=== PATIENT | male | born 1965 | race Two or more races ===

== ENCOUNTER 2017-04-26 07:07 | Day surgery (SDC) | payer BC ==
[2017-04-25 12:11] LABS: CALCIUM 10.4 mg/dL (8.6-10.2); CREATININE 1.4 mg/dL (0.7-1.2); POTASSIUM 4.4 mEQ/L (3.4-4.9)
[2017-04-25 12:13] LABS: BASOPHILS % (AUTO) 0.7 % (0.0-2.0); EOSINOPHILS % (AUTO) 0.7 % (0.0-3.0); LYMPHOCYTES % (AUTO) 20.4 % (20.0-45.0); MEAN CORPUSCULAR HEMOGLOBIN 33.6 PG (27.0-31.0); MEAN CORPUSCULAR HGB CONC 33.5 G/DL (32.0-36.0); MEAN CORPUSCULAR VOLUME 100 FL (80-99); MEAN PLATELET VOLUME 7.1 FL (6.5-10.1); MONOCYTES % (AUTO) 5.8 % (1.0-10.0); NEUTROPHILS % (AUTO) 72.4 % (45.0-75.0); PLATELET COUNT 177 K/UL (150-450); RED BLOOD COUNT 5.63 M/UL (4.70-6.10); RED CELL DISTRIBUTION WIDTH 11.7 % (11.6-14.8)
[~2017-04-26] VITALS: Ht 180.3 cm; Wt 79.8 kg
[2017-04-26] VITALS (10 sets, daily range): BP systolic 108–139; BP diastolic 64–94
[~2017-04-26 07:07] MED LIST: AMBIEN10 M1 ORAL; CORTEF5 MG PO; GENVOYA TABLET1 EACH PO; SERTRALINE HCL100 MG PO
[2017-04-26] MEDS ORDERED: EPINEPHrine 1mg/1ml Amp ONE (07:25)
[2017-04-26] MEDS ORDERED: Dexamethasone 4mg/ml vial ONE (07:25)
[2017-04-26] MEDS ORDERED: Ropivacaine 5mg/ml Vial 20ml INJ ONE (07:26)
--- NOTE | 2017-04-26 09:03 | Pre-Procedure Note/Attestation ---
Pre-Procedure Note/Attestation Complete Prior to Procedure Planned Procedure: not applicable Procedure Narrative: Procedure for prolapse and hemorrhoids, colonoscopy, possible biopsy, polypectomy, hemostasis, submucosal injection Indications for Procedure Pre-Operative Diagnosis: rectal bleeding, history of polyps Attestation I attest that I discussed the nature of the procedure; its benefits; risks and complications; and alternatives (and the risks and benefits of such alternatives ), prior to the procedure, with the patient (or the patient's legal marketing representative). I attest that, if there was a reasonable possibility of needing a blood transfusion, the patient (or the patient's legal marketing representative) was given the [place] [facility] [employer] [facility] standardized written summary, pursuant to the Nicol[employer] Blood Safety Act ([place] Health and Safety Code # 1645, as amended). I attest that I re-evaluated the patient just prior to the surgery and that there has been no change in the patient's H&P, except as documented below: GORGE IRAHETA Apr 26, 2017 09:03
[2017-04-26] MEDS ORDERED: Midazolam 2mg/2ml Inj ONE (09:30)
[2017-04-26] MEDS ORDERED: fentaNYL 250mcg/5ml ONE (09:30)
[2017-04-26] MEDS ORDERED: Glycopyrrolate 0.2mg/ml 1ml Vial ONE (09:30)
[2017-04-26] MEDS ORDERED: Lidocaine 1% MPF 10mg/ml 5ml ONE (09:30)
[2017-04-26] MEDS ORDERED: NS Irrig 1000ml ONE (09:30)
[2017-04-26] MEDS ORDERED: Sterile Water Irrig 1000ml IRRIG ONE (09:30)
[2017-04-26] MEDS ORDERED: Zemuron 50mg/5ml Inj IV ONE (09:30)
[2017-04-26] MEDS ORDERED: LR 1000ml ONE (09:30)
[2017-04-26] MEDS ORDERED: Sodium Chloride 10ml vial INJ ONE (09:30)
[2017-04-26] MEDS ORDERED: Propofol 10mg/ml 20ml IV ONE (09:30)
[2017-04-26] MEDS ORDERED: cefOXitin 2gm Inj ONE (09:59)
[2017-04-26] MEDS ORDERED: NS Irrig 1000ml IRRIG ONE (10:02)
--- NOTE | 2017-04-26 10:10 | Anethesia Preoperative Eval ---
Anesthesia Pre-op PMH/ROS General Date of Evaluation: Apr 26, 2017 Anesthesiologist: Javier ASA Score: ASA 3 Mallampati Score Class I : Soft palate, uvula, fauces, pillars visible Class II: Soft palate, uvula, fauces visible Class III: Soft palate, base of uvula visible Class IV: Only hard plate visible Mallampati Classification: Class I Surgeon: Betsy Diagnosis: Hemorrhoids, Rectal bleeding Surgical Procedure: Hemorrhoidectomy, colonoscopy Anesthesia History: none Family History: no anesthesia problems Allergies: Coded Allergies: Lobster (Verified Allergy, Severe, Anaphylaxis, 06/14/16) SHELLFISH DERIVED (Verified Allergy, Severe, Anaphylaxis, 06/14/16) Shrimp (Verified Allergy, Severe, Anaphylaxis, 06/14/16) Medications: see eMAR Past Medical History Cardiovascular: Reports: HTN, other - HLD, Denies: CAD, MA, valve dz, arrhythmia Pulmonary: Denies: asthma, COPD, GILMER, other Gastrointestinal/Genitourinary: Reports: GERD, Denies: CRI, ESRD, other Neurologic/Psychiatric: Reports: depression/anxiety, Denies: dementia, CVA, TIA, other Endocrine: Denies: DM, hypothyroidism, steroids, other HEENT: Denies: cataract (L), cataract (R), glaucoma, DIOMEDE (L), DIOMEDE (R), other Hematology/Immune: Denies: anemia, DVT, bleeding disorder, other Musculoskeletal/Integumentary: Reports: other - HIV/AIDS, Denies: OA, RA, DJD, DDD, edema PSxH Narrative: lap jackson, lap appy, Left leg sx Anesthesia Pre-op Phys. Exam Physician Exam Last Vital Signs Date Time Temp Pulse Resp B/P (MAP) Pulse Ox O2 Delivery O2 Flow Rate FiO2 04/26/17 07:57 98.1 54 18 108/64 98 Room Air Constitutional: NAD Cardiovascular: RRR Respiratory: CTA Airway Exam Mallampati Score: Class I MO: full ROM: full Teeth: missing, intact Anesthesia Pre-op A/P Labs Hematology Test 04/25/17 11:45 White Blood Count 9.0 K/UL (4.8-10.8) Red Blood Count 5.63 M/UL (4.70-6.10) Hemoglobin 18.9 G/DL (14.2-18.0) *H Hematocrit 56.5 % (42.0-52.0) H Mean Corpuscular Volume 100 FL (80-99) H Mean Corpuscular Hemoglobin 33.6 PG (27.0-31.0) H Mean Corpuscular Hemoglobin Concent 33.5 G/DL (32.0-36.0) Red Cell Distribution Width 11.7 % (11.6-14.8) Platelet Count 177 K/UL (150-450) Mean Platelet Volume 7.1 FL (6.5-10.1) Neutrophils (%) (Auto) 72.4 % (45.0-75.0) Lymphocytes (%) (Auto) 20.4 % (20.0-45.0) Monocytes (%) (Auto) 5.8 % (1.0-10.0) Eosinophils (%) (Auto) 0.7 % (0.0-3.0) Basophils (%) (Auto) 0.7 % (0.0-2.0) Coagulation Test 04/25/17 11:45 Prothrombin Time 10.0 SEC (9.30-11.50) Prothromb Time International Ratio 1.0 (0.9-1.1) Activated Partial Thromboplast Time 27 SEC (23-33) Chemistry Test 04/25/17 11:45 Sodium Level 141 mEQ/L (135-145) Potassium Level 4.4 mEQ/L (3.4-4.9) Chloride Level 100 mEQ/L (98-107) Carbon Dioxide Level 29 mEQ/L (20-30) Anion Gap 12 (5-15) Blood Urea Nitrogen 17 mg/dL (7-23) Creatinine 1.4 mg/dL (0.7-1.2) H Estimat Glomerular Filtration Rate 53.0 mL/min (>60) Glucose Level 124 mg/dL (74-106) H Calcium Level 10.4 mg/dL (8.6-10.2) H Studies Pre-op Studies: EKG - sb Risk Assessment & Plan Assessment: ASA III Plan: GA Status Change Before Surgery: No Pre-Antibiotics Drug: Cefoxitin 2g Given Within 1 Hr of Incision: Yes Time Given: 09:45 STANTON JOAQUIN M.D. Apr 26, 2017 10:10
[2017-04-26] MEDS ORDERED: LR 1000ml 1,000 ML IVLG SCH (10:11)
--- NOTE | 2017-04-26 10:11 | 48 Hour Post Anesthesia Eval ---
Post Anesthesia Evaluation Procedure: Hemorrhoidectomy, colonoscopy Date of Evaluation: Apr 26, 2017 Airway: patent Nausea: No Vomiting: No Pain Intensity: 1 Hydration Status: adequate Cardiopulmonary Status: at baseline Mental Status/LOC: patient returned to baseline Post-Anesthesia Complications: 0 Follow-up care needed: ready to discharge STANTON JOAQUIN M.D. Apr 26, 2017 10:11
--- NOTE | 2017-04-26 10:11 | Immediate Post-Op Evaluation ---
Immediate Post-Op Evalulation Immediate Post-Op Evalulation Procedure: Hemorrhoidectomy, colonoscopy Date of Evaluation: Apr 26, 2017 Time of Evaluation: 11:00 IV Fluids: 1L Blood Products: 0 Estimated Blood Loss: 10 Urinary Output: 0 Blood Pressure Systolic: 122 Blood Pressure Diastolic: 73 Pulse Rate: 64 Respiratory Rate: 16 O2 Sat by Pulse Oximetry: 96 Temperature (Fahrenheit): 98.3 Pain Score (1-10): 0 Nausea: No Vomiting: No Complications 0 Patient Status: awake, reacts, patent, none Hydration Status: adequate Drug: Cefoxitin 2g Given Within 1 Hr of Incision: Yes Time Given: 09:45 STANTON JOAQUIN M.D. Apr 26, 2017 10:11
[2017-04-26] MEDS ORDERED: DiphenhydrAMINE 50mg/ml Inj IVP PRN (10:15)
[2017-04-26] MEDS ORDERED: Hydromorphone 0.5mg/0.5ml inj IVP PRN (10:15)
[2017-04-26] MEDS ORDERED: LORazepam Inj 2mg/ml 1ml IV PRN (10:15)
[2017-04-26] MEDS ORDERED: fentaNYL 100 mcg/2 mL IV PRN (10:15)
[2017-04-26] MEDS ORDERED: Midazolam 2mg/2ml Inj IVP PRN (10:15)
--- NOTE | 2017-04-26 10:56 | Brief Operative Note ---
Immediate Post Operative Note Operative Note Pre-op Diagnosis: rectal bleeding, history of polyps Procedure: Procedure for prolapse and hemorrhoids (PPH), colonoscopy with cold forceps biopsy Post-op Diagnosis: hemorrhoids, rectal polyp Findings: consistent w/pre-op dx studies Surgeon: Olinda Iraheta MD Anesthesiologist: Toña Herrera MD Anesthesia: general Specimen: yes Complications: none Condition: stable Fluids: 1 liter Estimated Blood Loss: minimal Drains: none Implant(s) used?: No OLINDA IRAHETA Apr 26, 2017 10:56
--- NOTE | 2017-04-26 10:58 | Discharge Instructions ---
Discharge Instructions Discharge Instructions Diet: regular Resume Normal Activity?: Yes Activity: as tolerated Follow Up Orders - remove dressings and tape tonight then may shower and bathe as usual - follow up with Dr. Iraheta in 2-3 weeks For Surgical Patients May shower: Yes For Congestive Heart Failure Reminder Report to your physician any weight gain of 5 pounds or more in one week. GORGE IRAHETA Apr 26, 2017 10:58
--- NOTE | 2017-04-27 00:46 | Operative Note - Dictated ---
DATE OF OPERATION: 04/26/2017 PREOPERATIVE DIAGNOSES: Bleeding large internal hemorrhoids and history of previous colon polyps. POSTPROCEDURE DIAGNOSES: Bleeding large internal hemorrhoids and rectal polyp. PROCEDURES: Procedure for prolapse and hemorrhoids (PPH), colonoscopy with cold forceps biopsy. SURGEON: Olinda Meyer M.D. ANESTHESIOLOGIST: Dr. Herrera. ANESTHESIA: General endotracheal anesthesia. INDICATION FOR PROCEDURE: The patient is a 52-year-old male, who is well known to [facility] since 2008 for occasional rectal bleeding. The patient had a colonoscopy done by [facility] last year, 06/15/2016, which showed 4 benign polyps. The patient continued to have problems with his hemorrhoids. In light of his symptoms, it was determined at this time to proceed with hemorrhoidectomy along with a followup colonoscopy. DESCRIPTION OF PROCEDURE: Upon consent of the patient, the patient was brought to the operating room and was intubated in the supine position on the gurney. Once general endotracheal anesthesia had been established, the patient repositioned in a prone silvano-knife position on the operating table. The buttocks were then prepped and draped in the usual surgical fashion. A 40 mL of 0.5% ropivacaine with epinephrine mixed with 6 mg of dexamethasone was used as a perianal and pudendal block. A Hill Fuchs retractors placed in the anal canal. There were noted to be circumferential large internal hemorrhoids. The dilator with Ethicon PPH stapler was inserted and removed. The dilator with clear obturator was then inserted and the clear obturator was held in place while the dilator was removed. A purse-string anoscope was inserted into the anus and a pursestring was created approximately 2 cm proximal to the dentate line using a 2-0 Monocryl suture. Upon completion of the pursestring, the anoscope was removed and the pursestring was tied around the anvil of the 33 mm hemorrhoidal PPH stapler. The stapler was closed and the perianal skin was checked to make sure there was no involvement of the perianal skin. The stapler was then fired, opened, and withdrawn and there was noted to be complete hemorrhoidal donut. This was passed off the field as specimen. The anal canal was then irrigated and hemostasis was confirmed. Any bleeding points along the staple line were ligated with [id number] 2-0 Vicryl suture. The patient was then repositioned in the left lateral decubitus position for the colonoscopy. Olympus colonoscope was advanced through the anus into the rectum. The descending colon, splenic flexure, transverse colon, hepatic flexure, and descending colon were visualized. The cecum was easily reached, and the ileocecal valve and appendiceal orifice were identified. The patient's prep was noted to be fair. However, there were some areas of feces and debris that were in the colon, which was suboptimal for fine mucosal detail. The colonoscope was slowly withdrawn and there was noted to be a small benign-appearing polyp in the rectum, which was removed with cold forceps biopsy. This was sent off the field as a specimen. The post polypectomy site was noted to have no active bleeding. Upon reaching the rectum, the colonoscope was not retroflexed secondary to surgery. Air was evacuated from the rectum and the colonoscope was removed. The patient was awakened from anesthesia, extubated, and brought to postanesthesia recovery in stable condition. ESTIMATED BLOOD LOSS: 10 mL. DRAINS: None. SPECIMEN: Hemorrhoidal donut, rectal polyp. COMPLICATIONS: None. Olinda Meyer M.D. DR: LEATHA JOB#: [id number] CC: Nga Richard M.D.
== END 2017-04-26 12:45 | disposition home or self-care (01) ==
LOC: SUR 07:07
DX: K64.8 Other hemorrhoids (principal); D12.8 Benign neoplasm of rectum; I10 Essential (primary) hypertension; E78.5 Hyperlipidemia, unspecified; K21.9 Gastro-esophageal reflux disease without esophagitis; F32.9 Major depressive disorder, single episode, unspecified; F41.9 Anxiety disorder, unspecified; Z91.013 Allergy to seafood; Z90.49 Acquired absence of other specified parts of digestive tract
CPT/HCPCS: 36415; 80048; 85025; 85610; 85730; 93005; 94003; 94150; J2250; J2405